=== PATIENT | female | born 1940 | race Asian ===

== ENCOUNTER 2016-08-03 05:07 | Inpatient (IN) | payer OTHER ==
[2016-08-03] MEDS ORDERED: LIDOCAINE 1% 2 ML INJ ONE (05:26)
[2016-08-03] MEDS ORDERED: CEFAZOLIN 2 GM/DEXTR 100 ML IV ONE (06:00)
[2016-08-03] MEDS ORDERED: ACETAMINOPHEN 325 MG TAB PO ONE (06:00)
[2016-08-03] MEDS ORDERED: DEXAMETHASONE 4 MG/ML VIAL IVP ONE (06:00)
[2016-08-03] MEDS ORDERED: NS IV ONE (06:00)
[2016-08-03] MEDS ORDERED: ROPI/epiNEPH/KETOROLAC JOINT COCKTAIL IU ONE (06:00)
[2016-08-03] MEDS ORDERED: CHLORHEXIDINE GLUC HIBICLENS 118 ML BTL TP ONE (06:00)
[2016-08-03] MEDS ORDERED: TRANEXAMIC ACID IV ONE (06:00)
[2016-08-03] MEDS ORDERED: FAMOTIDINE 20 MG TAB PO ONE (06:00)
[2016-08-03] MEDS ORDERED: ACETAMINOPHEN 325 MG TAB ONE (06:16)
[2016-08-03] MEDS ORDERED: DEXAMETHASONE 4 MG/ML VIAL ONE (06:16)
[2016-08-03] MEDS ORDERED: FAMOTIDINE 20 MG TAB ONE (06:16)
[2016-08-03] MEDS ORDERED: CEFAZOLIN 2 GM/DEXTROSE/100 ML BAG IV ONE (06:17)
[2016-08-03] MEDS ORDERED: LR 1,000 ML IV ONE (06:37)
[2016-08-03] MEDS ORDERED: LIDOCAINE 1% 5 ML SDV ID PRN (06:37)
[2016-08-03] MEDS ORDERED: ceFAZolin 1 GM/5 ML SYR ONE ×2 (06:52→07:02)
--- NOTE | 2016-08-03 07:02 | PDHPUP ---
History & Physical Update H&P update statement: This history and physical update is based on an assessment of the patient which was completed after admission or registration (within 24 hours), but prior to the surgery/procedure. H&P update: H&P reviewed & patient examined, no change in patient's condition since H&P completed
[2016-08-03] MEDS ORDERED: MIDAZOLAM 2 MG/2 ML VIAL IVP ONE (07:04)
--- NOTE | 2016-08-03 07:05 | PDANEPAE ---
ANE History of Present Illness 76yo F for Left Total Hip ANE Past Medical History - Cardiovascular History Hx Hypertension: No Hx Arrhythmias: No Hx Chest Pain: No Hx Coronary Artery / Peripheral Vascular Disease: No Hx CHF / Valvular Disease: No Hx Palpitations: No - Pulmonary History Hx COPD: No Hx Asthma/Reactive Airway Disease: No Hx Recent Upper Respiratory Infection: No Hx Oxygen in Use at Home: No - Neurologic History Hx Cerebrovascular Accident: No Hx Seizures: No Hx Dementia: No - Endocrine History Hx Diabetes: No - Renal History Hx Renal Disorders: No - Liver History Hx Hepatic Disorders: No - Neurological & Psychiatric Hx Hx Neurological and Psychiatric Disorders: No - Cancer History Hx Cancer: No - Congenital Disorder History Hx Congenital Disorders: No - GI History Hx Gastrointestinal Disorders: Yes - Chronic Pain History Chronic Pain: No ANE Review of Systems Review of systems is: negative - Exercise capacity METS (RN): 4 METS ANE Patient History - Allergies Allergies/Adverse Reactions: diphenhydramine [From Benadryl] Allergy (Verified 07/07/16 11:11) Rash - Home Medications Home Medications: Cholecalciferol Vit D3 [Vitamin D3 (*)] 1,000 units PO DAILY 07/07/16 [Last Taken Unknown] Herbals/Supplements -Info Only 1 ea PO DAILY 07/07/16 [Last Taken Unknown] - NPO status NPO Since - Liquids (Date): 08/02/16 NPO Since - Liquids (Time): 22:00 NPO Since - Solids (Date): 08/02/16 NPO Since - Solids (Time): 22:00 - Smoking Hx Smoking Status: Never smoked ANE Labs/Vital Signs - Vital Signs Blood Pressure: 173/81 Heart Rate: 97 Respiratory Rate: 16 O2 Sat (%): 95 Height: 162.56 cm Weight: 55.792 kg ANE Physical Exam - Airway Mallampati Score: Class 2 Mouth exam: normal dental/mouth exam - Pulmonary Pulmonary: clear to auscultation - Cardiovascular Cardiovascular: regular rate and rhythym - ASA Status ASA Status: I ANE Anesthesia Plan Anesthesia Plan: spinal
[2016-08-03] MEDS ORDERED: PROPOFOL/EMULSION 500 MG/50 ML BOTTLE IV ONE (07:12)
[2016-08-03] MEDS ORDERED: LIDOCAINE 2% 5 ML SDV ONE (07:15)
[2016-08-03] MEDS ORDERED: ONDANSETRON 4 MG/2 ML VIAL ONE (07:15)
[2016-08-03] MEDS ORDERED: MIDAZOLAM 2 MG/2 ML VIAL ONE (07:16)
[2016-08-03] MEDS ORDERED: ACETAMINOPHEN 500 MG TAB PO PRN (07:19)
[2016-08-03] MEDS ORDERED: NALOXONE HCL 0.4 MG/ML INJ IVP PRN (07:19)
[2016-08-03] MEDS ORDERED: ONDANSETRON 4 MG/2 ML VIAL IVP PRN ×2 (07:19→10:00)
[2016-08-03] MEDS ORDERED: LR 500 ML IV PRN (07:19)
[2016-08-03] MEDS ORDERED: ALBUTEROL 3 ML DEYVIAL IH PRN (07:19)
[2016-08-03] MEDS ORDERED: HYDROCODONE/APAP 5/325 TAB PO PRN (07:19)
[2016-08-03] MEDS ORDERED: fentaNYL 100 MCG/2 ML INJ IVP PRN (07:19)
[2016-08-03] MEDS ORDERED: PHENYLEPHRINE HCL 100 MCG/ML SYR ONE (08:31)
[2016-08-03] MEDS ORDERED: PROPOFOL 200 MG/20 ML VIAL ONE (09:05)
[2016-08-03] MEDS ORDERED: METOCLOPRAMIDE 10 MG/2 ML VIAL IVP PRN (10:00)
[2016-08-03] MEDS ORDERED: ONDANSETRON DISINTEGRATING 4 MG TAB PO PRN (10:00)
[2016-08-03] MEDS ORDERED: PROMETHAZINE HCL 25 MG SUPPR PR PRN (10:00)
[2016-08-03] MEDS ORDERED: BISACODYL 10 MG SUPP PR PRN (10:00)
[2016-08-03] MEDS ORDERED: MAGNESIUM HYDROXIDE 30 ML UDCUP PO PRN (10:00)
[2016-08-03] MEDS ORDERED: DIPHENOXYLATE/ATROPINE LOMOTIL 1 TAB PO PRN (10:00)
[2016-08-03] MEDS ORDERED: oxyCODONE IR 5 MG TAB PO PRN (10:00)
[2016-08-03] MEDS ORDERED: PROMETHAZINE HCL 25 MG/ML INJ IVP PRN (10:00)
[2016-08-03] MEDS ORDERED: POLYETHYLENE GLYCOL 3350 17 GM PKT PO PRN (10:00)
[2016-08-03] MEDS ORDERED: TEMAZEPAM 15 MG CAP PO PRN (10:00)
[2016-08-03] MEDS ORDERED: LACTULOSE 20 GM/30 ML UDCUP PO PRN (10:00)
[2016-08-03] MEDS ORDERED: PHARMACY PAIN CONSULT 1 EA MISC PRN (10:00)
--- NOTE | 2016-08-03 10:02 | POSTANESTH ---
Post Anesthetic Evaluation Cardiovascular Status: Normal, Stable Respiratory Status: Normal, Stable Level of Consciousness/Mental Status: Can Participate in Eval, Alert and Oriented Pain Control: Adequate, Prn Tx Ordered Nausea/Vomiting Control: Adequate, Prn Tx Ordered Complications Possibly Related to Anesthesia: None Noted
[2016-08-03] MEDS: HYDROmorphONE/DILAUDID 1 MG/ML SYR IVP PRN ×2 (10:22→10:32)
[2016-08-03] MEDS ORDERED: HYDROmorphONE/DILAUDID 1 MG/ML SYR ONE (10:22)
--- NOTE | 2016-08-03 10:40 | POSTOPPROG ---
Post Op Note Date of Operation: 08/03/16 Surgeon: Bob Chacon Spark Plug Tester: Vickie Floyd PA-C Anesthesiologist: Dr. Scales Anesthesia: Spinal Pre-op Diagnosis: Left hip osteoarthritis Post-op Diagnosis: Left hip osteoarthritis Procedure: L DISHA Findings: See full dictation Inf/Abcess present in the surg proc area at time of surgery?: No Depth: Organ Space EBL: 100-500 Complications: None
--- NOTE | 2016-08-03 10:44 | GOP ---
[f rep st] OPERATIVE REPORT DATE OF OPERATION: 08/03/2016 SURGEON: Bob Chacon MD WOOL BRUSHER: Vickie Floyd. ANESTHESIA: Spinal. PREOPERATIVE DIAGNOSIS: Left hip osteoarthritis. POSTOPERATIVE DIAGNOSIS: Left hip osteoarthritis. PROCEDURE PERFORMED: Left total hip arthroplasty. FINDINGS: DESCRIPTION OF PROCEDURE: The patient was taken to the operative room, administered spinal anesthes ia and placed in the right lateral decubitus position. Had her left hip and lower extremity prepped and draped in normal sterile fashion. A direct superior incision was made through dermal and subcutaneous tissues. The gluteus dalton fa scia was divided. Blunt spreading was performed down to the fat pad below the gluteus dalton. Thi s was partially excised revealing the external rotators. The piriformis tendon was preserved superi dave. Retractors were placed underneath the gluteus minimus and piriformis, and these were retracte d. The capsule was then incised in a slightly L-shaped fashion. The femoral head was then dislocat ed. The neck cut was measured and made approximately 0.75 cm above the lesser trochanter with the o scillating saw and neck cutting guide. The head and neck segment was then removed. The acetabulum was further exposed with retractors placed anteriorly, inferiorly and posteriorly. The labral tissu e was further excised. The tissue within the cotyloid notch was excised. Reaming commenced mediall y with a 47 reamer. We then reamed up to a size 52. The 52 trial fit well. We elected to go ahead and place the real cup. This was impacted in position. The real liner was impacted into position. The femoral neck was then further exposed. The retractors were repositioned. A box osteotome was used to remove bone from the greater trochanter. A tapered reamer was placed down through the femo ral canal. Reaming commenced with a size 4 and extended up to a size 8. Broaching began with a siz e 4 and extended up to a size 8. An 8 broach was left in place. The trial reduction was performed with a standard neck length. We felt we had good stability. The real implants were opened. The re al femur was impacted into position. It was a size 8 secure fit stem. The trunnion was dried. A t rial reduction was performed with a trial standard head, 0 neck length. It was felt to be stable. The real head was opened. This was an L fit C tapered femoral head, size 36 mm, +0 offset. The laura nnion was dried and the head was put in place and impacted. The hip was then relocated. Thorough lavage performed with normal saline. The posterior hip capsule was closed with 0 Vicryl sands ture. #2 Ethibond was used to reapproximate the external rotators. The gluteal fascia was closed w ith a 0 Vicryl suture followed by closure of the subcutaneous tissue with a 2-0 Vicryl suture, follo wed by closure of the dermis with a running 3-0 subcuticular suture. A sterile compression dressing was applied. The patient tolerated the procedure well and was transferred back to the [facility] in stable condition. No operative complications. COMPLICATIONS: None. /[id number]/MODL
[2016-08-03] MEDS ORDERED: HYDROCODONE/APAP 5/325 TAB ONE (13:20)
[2016-08-03] MEDS: ACETAMINOPHEN 325 MG TAB PO SCH ×3 (13:36→23:22)
[2016-08-03] MEDS: LR 1,000 ML IV SCH ×2 (14:32→23:23)
[2016-08-03] MEDS: ceFAZolin 2 GM/DEXTROSE 100 ML IV SCH ×2 (14:33→21:58)
[2016-08-03] MEDS ORDERED: WARFARIN SODIUM 5 MG TAB PO SCH (16:00)
[2016-08-03] MEDS: SENNOSIDES/DOCUSATE SODIUM TAB PO SCH (21:58)
[2016-08-03] MEDS: FAMOTIDINE 20 MG TAB PO SCH (22:00)
[2016-08-03] MEDS: CYCLOBENZAPRINE 10 MG TAB PO PRN (22:00)
[2016-08-04 05:10] LABS: HEMATOCRIT 31.3 % (38.0-47.0); HEMOGLOBIN 10.6 g/dL (12.6-16.3)
[2016-08-04 05:27] LABS: INR 1.57 (0.83-1.16); PROTIME(PATIENT) 18.8 SEC (12.0-15.0)
[2016-08-04] MEDS: ACETAMINOPHEN 325 MG TAB PO SCH ×3 (06:25→18:14)
[2016-08-04] MEDS: CYCLOBENZAPRINE 10 MG TAB PO PRN ×2 (06:26→16:22)
[2016-08-04] MEDS: SENNOSIDES/DOCUSATE SODIUM TAB PO SCH ×2 (08:27→20:36)
[2016-08-04] MEDS: FAMOTIDINE 20 MG TAB PO SCH ×2 (08:28→20:36)
--- NOTE | 2016-08-04 14:57 | SOAPPROG ---
SOAP Progress Note Assessment/Plan: Assessment/Plan: s/p L DISHA POD#1 - Continue pain management - Continue 24-hours of antibiotic prophylaxis - Warfarin for VTE chemoprophylaxis -TEDs/SCDs for mechanical prophylaxis - Continue PT/OT - Likely discharge tomorrow after additional PT and work with stairs 08/04/16 14:54 Subjective: Pt states her pain is well-controlled. Pt has been OOB with PT. Patient is concerned about going home today because she has a lot of stairs and her LLE still feels weak from surgery. Pt denies fever, chills, chest pain, SOB, abdominal pain, N/V/D, numbness, tingling and calf pain. Objective: Vital Signs Temp Pulse Resp BP Pulse Ox 36.8 C 82 16 92/69 L 98 08/04/16 11:23 08/04/16 11:23 08/04/16 11:23 08/04/16 11:23 08/04/16 11:23 Laboratory Results 08/04/16 04:43 08/03/16 08/04/16 08/05/16 05:59 05:59 05:59 Intake Total 3972 Output Total 1025 Balance 2947 PT 18.8 SEC (12.0-15.0) H 08/04/16 04:43 INR 1.57 (0.83-1.16) H 08/04/16 04:43 Physical Exam - Physical Exam General Appearance: alert, no apparent distress Cardiac/Chest: normal peripheral pulses Skin: normal color, warm/dry, other (Incision site c/d/i) Extremities: normal capillary refill, No pedal edema, No calf tenderness, No swelling, No Carlota's sign Neuro/Psych: no motor/sensory deficits, alert, normal mood/affect, oriented x 3 ICD10 Worksheet Patient Problems: Problems Problem Status Onset Osteoarthritis of left hip Acute - ICD10 Problem Qualifiers (1) Osteoarthritis of left hip Qualifiers: Osteoarthritis type: primary Qualified Code(s): M16.12 - Unilateral primary osteoarthritis, left hip
[2016-08-04] MEDS ORDERED: WARFARIN SODIUM 2.5 MG TAB PO ONE (16:00)
[2016-08-05] MEDS: ACETAMINOPHEN 325 MG TAB PO SCH ×3 (00:23→12:44)
[2016-08-05] MEDS: CYCLOBENZAPRINE 10 MG TAB PO PRN (00:23)
[2016-08-05 04:27] VITALS: TEMP 98.2
[2016-08-05 04:56] LABS: HEMATOCRIT 31.1 % (38.0-47.0); HEMOGLOBIN 10.5 g/dL (12.6-16.3)
[2016-08-05 05:03] LABS: INR 2.44 (0.83-1.16); PROTIME(PATIENT) 26.7 SEC (12.0-15.0)
[2016-08-05 07:40] VITALS: BP 121/64; PULSE 93; RESP 16; O2SAT 93
[2016-08-05] MEDS: SENNOSIDES/DOCUSATE SODIUM TAB PO SCH (08:32)
[2016-08-05] MEDS: FAMOTIDINE 20 MG TAB PO SCH (08:32)
--- NOTE | 2016-08-05 09:14 | SOAPPROG ---
SOAP Progress Note Assessment/Plan: Assessment/Plan: s/p L DISHA POD#2 - Continue pain management - Warfarin for VTE chemoprophylaxis -TEDs/SCDs for mechanical prophylaxis - Continue PT/OT - Try a dose of oxycodone to see if she is able to perform more with PT - Discharge home vs SNF depending on PT recommendations today 08/04/16 14:54 08/05/16 09:11 08/05/16 09:13 Subjective: Pt states she is having difficulty getting out of bed without assistance. She has no pain at rest, but this increases with any movement. She is taking Tylenol and Flexaril. Pt denies fever, chills, chest pain, SOB, abdominal pain , N/V/D, numbness, tingling and calf pain Objective: Vital Signs Temp Pulse Resp BP Pulse Ox 36.8 C 93 16 121/64 H 93 08/05/16 04:00 08/05/16 07:39 08/05/16 07:39 08/05/16 07:39 08/05/16 07:39 Laboratory Results 08/05/16 04:39 08/04/16 08/05/16 08/06/16 05:59 05:59 05:59 Intake Total 3972 Output Total 1025 Balance 2947 PT 26.7 SEC (12.0-15.0) H 08/05/16 04:39 INR 2.44 (0.83-1.16) H 08/05/16 04:39 Physical Exam - Physical Exam General Appearance: alert, no apparent distress Cardiac/Chest: normal peripheral pulses Skin: normal color, warm/dry, other (Incision site c/d/i) Extremities: normal capillary refill, No pedal edema, No calf tenderness, No swelling, No Carlota's sign Neuro/Psych: no motor/sensory deficits, alert, normal mood/affect, oriented x 3 ICD10 Worksheet Patient Problems: Problems Problem Status Onset Osteoarthritis of left hip Acute - ICD10 Problem Qualifiers (1) Osteoarthritis of left hip Qualifiers: Osteoarthritis type: primary Qualified Code(s): M16.12 - Unilateral primary osteoarthritis, left hip
--- NOTE | 2016-08-05 12:42 | PDIAF ---
- Diagnosis Diagnosis: Left hip osteoarthritis s/p left total hip artroplasty Code Status: Full Code - Medication Management Discharge Medications: Medications to Continue on Transfer Cholecalciferol Vit D3 [Vitamin D3 (*)] 1,000 units PO DAILY 07/07/16 [Last Taken Unknown] Herbals/Supplements -Info Only 1 ea PO DAILY 07/07/16 [Last Taken Unknown] Acetaminophen [Tylenol 325mg (*)] 650 mg PO Q6HRS #0 tab 08/05/16 [Last Taken Unknown] Cyclobenzaprine [Flexeril 10 MG (*)] 10 mg PO Q8HRS PRN #30 tab 08/05/16 [Last Taken Unknown] Famotidine [Pepcid 20 MG (*)] 20 mg PO BID #30 tab 08/05/16 [Last Taken Unknown] Warfarin Sodium [Warfarin Pharmacy To Dose] 1 each MISC AD #0 ea 08/05/16 [Last Taken Unknown] oxyCODONE IR [Oxycodone Ir (*)] 5 - 10 mg PO Q3HRS PRN #30 tab 08/05/16 [Last Taken Unknown] Discharge Medications: Refer to the Discharge Home Medication list for PRN reason. - Orders Services needed: Physical Therapy, Occupational Therapy Diet Recommendation: no restrictions on diet Diet Texture: Regular Texture Diet Blake Stockings Discontinue Date: Until first post-operative visit Wound Care Instructions: Keep incision site clean and dry. Change dressing as needed Sutures/Dacia Site: Keep intact, clean and dry. Suture removal will be done at the first post-operative visit with Dr. Chacon. Keep covered for bathing, no soaking. Activity/Weight Bearing Restrictions: WBAT LLE. Follow posterior hip precautions - no internal rotation of the left hip, no left hip flexion >90 degrees Equipment: Front-wheeled walker - Labs/Radiology PT/INR Date: 08/08/16 (Bi-weekly starting 08/08/2016) - Follow Up Care Current Providers and Referrals: Neyda Miramontes MD [Primary Care Provider] - Bob Chacon MD [Medical Doctor] - (Follow-up at already scheduled post- operative visit, or call sooner if any concerns/questions)
[2016-08-05] MEDS ORDERED: WARFARIN SODIUM 2 MG TAB PO SCH (16:00)
--- NOTE | 2016-08-05 19:08 | PDDCSUM ---
Discharge Summary Discharge Summary: 76y/o F with L hip osteoarthritis was admitted to undergo a L DISHA. Pt was given Ancef prior to surgery, which was continued for 24-hours post-operatively for prophylaxis. Pain was well controlled. Warfarin for VTE chemoprophylaxis and SCDs/TEDs for mechanical prophylaxis. Pt was evaluated by PT/OT. Pt was discharged to [facility] because she has limited help at home. Hospital course was otherwise uneventful.
== END 2016-08-05 16:07 | DRG 470 ==
LOC: F3N 05:07
PROVIDERS: ADMIT Orthopaedic Surgery Sports Medicine; ATTEND Orthopaedic Surgery Sports Medicine
PROC: 0SRB04Z Replacement of Left Hip Joint with Ceramic on Polyethylene Synthetic Substitute, Open Approach (ICD-10-PCS; principal; 2016-08-03 07:15)
DX: M16.12 Unilateral primary osteoarthritis, left hip (principal)
CPT/HCPCS: 97116-GP; 97161-GP; 97165-GO; 97530-GP; 97535-GO; G8978-GP-CJ; G8979-GP-CI; G8980-GP-CI; G8987-GO-CK; G8988-GO-CI; J0171; J0690; J1100; J1170; J1885; J2250; J2370; J2405; J2704; J2765; J2795

== ENCOUNTER → 2017-12-26 | Outpatient (CLI) | payer OTHER | LOC: FIMAGING 09:21 | PROVIDERS: ATTEND Internal Medicine | DX: Z13.820 Encounter for screening for osteoporosis (principal); Z78.0 Asymptomatic menopausal state; M81.0 Age-related osteoporosis without current pathological fracture ==